=== PATIENT | male | born 1985 | race Caucasian/White ===

== ENCOUNTER 2018-06-08 14:41 | Emergency (ER) | payer MEDICAID, SELFPAY ==
[2018-06-08 14:44] VITALS: BP 151/88; PULSE 77; RESP 18; TEMP 36.6; O2SAT 99
--- NOTE | 2018-06-08 15:52 | ED.GENADUL_ITS ---
Discharge Plan Disposition Patient Disposition: HOME Condition: Good Discharge Details Chief Complaint: GenMedical Clinical Impression: Carbon monoxide exposure Primary Care Provider: None,None ED Provider: Lincoln Maradiaga Discharge Instructions Instructions: Carbon Monoxide Poisoning (ED) Additional Instructions: If you notice any worsening of your symptoms, or any new symptoms such as vomiting, diarrhea, fever, chills, shortness of breath, chest pain, numbness, weakness, or fainting , please return immediately to the emergency department for reevaluation. Please follow up with your primary care provider as soon as possible for reassessment and reevaluation. As always, it was a pleasure participating in your medical care today. Discharge Data Discharge Date/Time-TO BE ENTERED AT DEPARTURE: 06/08/18 18:43 Medical Decision Making <Miguel Nieto NP - Last Filed: 06/10/18 08:08> Patient presenting the emergency department after exposure to possible carbon monoxide being in an enclosed garage for approximately 45 minutes. He states that he started feeling funny in both his head and some tingling in his arms. Patient denies any other symptoms such as fever chills, nuchal rigidity, or other focal neurological deficits. Physical exam is unremarkable. Bedside monitor does show elevated carbon monoxide level so patient placed up on oxygen and observed. Patient is otherwise stable so I do not feel that labs are required at this time. Did discuss with patient potential transfer to Center with hyperbaric treatment and he denied transfer at this time. Plan of care transition to Dr. Maradiaga to continue to observe patient and dispel patient after levels become safe. <Lincoln Maradiaga DO - Last Filed: 06/08/18 18:29> The patient was signed out to me my my colleague Nathan Nieto. He had a slightly elevated carbon monoxide level at time of signout, we are pending repeat monitoring and a observation. While on on oxygen via the nonrebreather. After a prolonged observation. The patient's carbon monoxide has been reassessed and he is now no vaginal bleed lower than 10. The patient demonstrates no neurologic deficits, normal mental status and is at his baseline. He feels well and is requesting discharge home. We did discuss potential hyperbaric oxygen at outside facilities and he states that he is not interested in these options at this time. With no neurologic abnormality, carbon monoxide less than 10, and an excellent clinical picture I feel that his wishes can be respected and that he can be discharged. We had a long discussion regarding the importance of close follow-up and prompt return if he notices any abnormalities or other changes. I have extensively reviewed the treatment plan and discharge instructions with the patient and their family. I have addressed all patient concerns at this time. The patient and family was made aware of what symptoms to monitor for that would warrant a return to the emergency department. Discussed the plan with the patient and family, they demonstrate verbal understanding and agreement with our assessment and plan at this time. HPI <Miguel Nieto NP - Last Filed: 06/10/18 08:08> General Mode of arrival: ambulatory . Date/Time Provider Initiated Documentation: 06/08/18 15:03 . Limitations to Documentation: no limitations . Information obtained by: patient and RN notes reviewed . History of Present Illness described as mild, Quality is described as other (Denies pain), and is localized to the upper extremity. Patient started experiencing this minute(s) (45) and it has been constant. No relieving factors improve symptom(s), Patient notes no other symptoms.. Patient did receive the following treatments prior to arrival, none General Stated Complaint: GenMedical JUAN F: 4 Review of Systems <Miguel Nieto NP - Last Filed: 06/10/18 08:08> Constitutional Denies body ache(s), Denies chills, Denies fever(s) and Denies headache(s) ENT Denies headache(s) Cardiovascular Denies chest pain and Reports dyspnea Respiratory Reports dyspnea Gastrointestinal Denies abdominal pain, Denies nausea and Denies vomiting Musculoskeletal Reports tingling Integumentary/Breasts Denies rash Neurologic Denies confusion, Denies headache(s), Denies sensory deficit and Reports tingling Psychiatric Denies confusion PFSH <Miguel Nieto NP - Last Filed: 06/10/18 08:08> Social History Smoking/Tobacco Use Status: Never Exam <Miguel Nieto NP - Last Filed: 06/10/18 08:08> Const General: cooperative, no acute distress and not ill appearing Orientation: alert, awake and oriented x3 HENMT Mouth: moist mucous membranes Resp Effort & Inspection: normal respiratory effort, able to speak in complete sentences and no respiratory distress Auscultation: clear to auscultation bilaterally Cardio Rate: regular rate Rhythm: regular rhythm Heart Sounds: S1 normal, S2 normal, no click, no gallops, no murmurs and no rubs Skin General skin exam: no rashes or lesions noted Neuro General: alert, awake, oriented x3, moves all extremities and no focal motor deficits Sensory Exam: no sensory deficits noted Course <Miguel Nieto NP - Last Filed: 06/10/18 08:08> Vital Signs Temperature 36.6 C 06/08/18 14:44 Pulse 77 06/08/18 14:44 Respiratory Rate 18 06/08/18 14:44 Blood Pressure 151/88 H 06/08/18 14:44 Pulse Oximetry 99 06/08/18 14:44 Temperature 36.6 C 06/08/18 14:44 Temperature Source Temporal Artery Scan 06/08/18 14:44 Pulse 77 06/08/18 14:44 Respiratory Rate 18 06/08/18 14:44 Respiratory Effort Non-Labored 06/08/18 14:48 Blood Pressure 151/88 H 06/08/18 14:44 Blood Pressure Position Sitting 06/08/18 14:44 Pulse Oximetry 99 06/08/18 14:44 Oxygen Delivery Method Room Air 06/08/18 14:44 Oxygen Flow Rate 0 06/08/18 14:44 Pain Level 0 06/08/18 14:44
[2018-06-08 16:38] VITALS: RESP 20
[2018-06-08 18:08] VITALS: BP 133/79; PULSE 64; RESP 18; TEMP 36.9; O2SAT 100
[2018-06-08 18:10] VITALS: BP 133/79; PULSE 64; RESP 18; TEMP 36.9; O2SAT 100
== END 2018-06-08 18:43 | disposition home or self-care (01) ==
PROVIDERS: Emergency Provider Student in an Organized Health Care Education/Training Program
DX: T58.01XA Toxic effect of carbon monoxide from motor vehicle exhaust, accidental (unintentional), initial encounter (principal); Y92.015 Private garage of single-family (private) house as the place of occurrence of the external cause
CPT/HCPCS: 99282

== ENCOUNTER 2023-10-29 12:51 | Emergency (ER) | payer MEDICAID, SELFPAY ==
[2023-10-29] VITALS (17 sets, daily range): BP systolic 126–169; BP diastolic 73–89; PULSE 58–84; RESP 14–28; TEMP 36.6; O2SAT 94–100
--- NOTE | 2023-10-29 12:45 | RT.EKG_ITS ---
APPROVED REPORT Exam: Resting ECG Reason for Exam: dizziness Patient Location: E HR:68 bpm ECG Measurements Heart Rate 68 AXIS AZ 165 P 48 QRSd 96 QRS 13 QT 371 T 6 QTc 394 Conclusion Sinus rhythm...normal P axis, V-rate 60- 99
--- NOTE | 2023-10-29 13:01 | W.ED.GENAD ---
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 Please stay well-hydrated. Please return to the ED for any persistent dizziness especially with sweating, dizziness and chest pain and shortness of breath associated with exertion.. Or any other emergent concerns. Discharge Data Discharge Date/Time-TO BE ENTERED AT DEPARTURE: 10/29/23 15:15 HPI General Date/Time Provider Initiated Documentation: 10/29/23 13:01. 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 Severity is described as severe for dizziness. Palliating factors include nothing specific- is drinking gatorade currently. Provoking factors include nothing specific. Events leading up to the incident/Associated Symptoms: Patient denies cardiac history, is otherwise healthy. Patient not anticoagulated. General Stated Complaint: Dizzy/Sync JUAN F: 3 Review of Systems All systems reviewed & are unremarkable except as noted in HPI and below Exam Narrative Exam Narrative: GENERAL APPEARANCE: Well-nourished, non-toxic, awake and alert, atraumatic, no acute distress. SKIN: Warm, pink, dry, intact, without rashes/lesions/ulcerations. HEAD: Normocephalic, atraumatic, normal hair distribution for gender/age. EYES: Pupils PERRLA, EOMs intact without nystagmus, normal conjunctiva, no exudates on lids/lashes. ENT: Nares patent, no circumoral cyanosis, no facial swelling NECK: Supple, trachea midline, painless cervical ROM. LUNGS/CHEST: Lungs CTA bilaterally, non-labored respirations, normal A/P diameter, symmetrical expansion, no chest wall deformity HEART (CV/PV): Regular rate and rhythm without murmur, no peripheral edema, no JVD. ABDOMEN: Soft, non-distended, no guarding. MSK: Normal ROM, no swelling/deformity to bilateral UEs or LEs, moving all extremities without weakness, no cyanosis, spine midline without tenderness, normal curvature. NEURO: Mental Status AAOx4 - alert to person, place, time, events No facial droop, no forehead involvement. Motor: No focal weakness - strength 5/5 in bilateral UEs and LEs, proximal and distal, symmetric. Sensory: sensation intact to light touch globally. Gait normal: patient ambulated without ataxia into ED room. PSYCH: euthymic, cooperative, pleasant, appropriate speech Course Vital Signs Vital signs: Vital Signs Temperature 36.6 C 10/29/23 12:54 Pulse 84 10/29/23 12:54 Respiratory Rate 28 H 10/29/23 12:54 Blood Pressure 169/86 H 10/29/23 12:54 Pulse Oximetry 99 10/29/23 12:54 Temperature 36.6 C 10/29/23 12:54 Temperature Source Oral 10/29/23 12:54 Pulse 84 10/29/23 12:54 Respiratory Rate 28 H 10/29/23 12:54 Blood Pressure 169/86 H 10/29/23 12:54 Blood Pressure Position Sitting 10/29/23 12:54 Pulse Oximetry 99 10/29/23 12:54 Oxygen Delivery Method Room Air 10/29/23 12:54 Oxygen Flow Rate 0 10/29/23 12:54 Pain Level 0 10/29/23 12:54 Medical Decision Making This dictation utilizes [id number] dictation software and may contain unedited grammatical errors. 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 Severity is described as severe for dizziness. Palliating factors include nothing specific- is drinking gatorade currently. Provoking factors include nothing specific. Events leading up to the incident/Associated Symptoms: Patient denies cardiac history, is otherwise healthy. Family and social history: no known early cardiac disease history. Pertinent exam findings / vital signs include benign cardiopulmonary exam, mildly diaphoretic, benign abdomen, hemodynamically stable. Differential / pathologies of concern include dehydration, arrhythmia, vertigo, heat exhaustion. Diagnostic studies of: -CBC, CMP, lactate, magnesium, UA, TSH. -CBC benign -CMP no BRITT -lactate mildly elev to 1.9 -magnesium wnl -UA benign -TSH benign -EKG shows sinus rhythm, normal axis, P waves followed by narrow complex QRS, no ST changes, no T wave abnormalities Interventions of: -1L IVF. 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 His EKG is benign, improved with IV fluids, his labs are acutely benign except for mild increase in lactate likely due to acute dehydration and heat exhaustion. He was comfortable with discharge and will return for any further signs of dizziness or shortness of breath. Findings not consistent with ACS, syncope, arrhythmia, profound dehydration, heat stroke. Disposition of Dehydration. Patient verbalized understanding of the plan and return to ED criteria and engaged in shared decision making. Medical Records Medical records reviewed: Yes I reviewed the patient's medical records. Lab Data Lab results reviewed: Yes I reviewed the patient's lab results. Labs: Laboratory Tests Range/Units 10/29/23 10/29/23 13:20 13:57 WBC (4.4-10.8) 10^3/uL 4.92 RBC (4.36-5.78) 10^6/uL 5.43 Hgb (13.5-17.5) g/dL 16.1 Hct (40.0-50.0) % 44.6 MCV (80-95) fL 82 MCH (27.0-33.0) pg 29.7 MCHC (32.0-36.0) % 36.1 H RDW (11.8-14.1) % 11.7 L Plt Count (130-400) 10^3/uL 202 MPV (8.0-11.0) fL 9.8 Immature Gran % % 0.2 Neutrophils % % 68.5 Lymphocytes % % 18.1 Monocytes % % 9.6 Eosinophils % % 3.0 Basophils % % 0.6 Nucleated RBC % (0.0-0.3) % 0.0 Absolute Neutrophils (1.2-6.7) 10^3/uL 3.37 Absolute Lymphocytes (1.2-3.4) 10^3/uL 0.89 L Absolute Monocytes (0.1-0.8) 10^3/uL 0.47 Absolute Eosinophils (0.0-0.7) 10^3/uL 0.15 Absolute Basophils (0.0-0.2) 10^3/uL 0.03 VBG Lactate (0.6-1.4) mmol/L 1.9 H Sodium (136-145) mmol/L 140 Potassium (3.5-5.1) mmol/L 3.7 Chloride (98-107) mmol/L 104 Carbon Dioxide (21.0-32.0) mmol/L 27.6 Anion Gap (3-11) mmol/L 8.4 BUN (7-18) mg/dL 10 Creatinine (0.70-1.30) mg/dL 1.0 Est GFR (CKD-EPI 2020) (mL/min/1.73m2) 99.41 Glucose (74-106) mg/dL 117 H Calcium (8.5-10.1) mg/dL 9.3 Magnesium (1.8-2.4) mg/dL 1.9 Total Bilirubin (0.2-1.0) mg/dL 0.95 AST (15-37) U/L 28 ALT (16-63) U/L 76 H Alkaline Phosphatase (46-116) U/L 89 Total Protein (6.4-8.2) g/dL 7.6 Albumin (3.4-5.0) g/dL 4.2 TSH (0.36-3.74) uIU/mL 0.74 Urine Color (Yellow) Yellow Urine Clarity (Clear) Clear Urine pH (5-8) 7.5 Ur Specific [place] (1.005-1.025) 1.015 Urine Protein (Neg-Trace) mg/dL Negative Urine Ketones (Negative) mg/dL Negative Urine Blood (Negative) Negative Urine Nitrite (Negative) Negative Urine Bilirubin (Negative) Negative Urine Urobilinogen (Up to 0.2) mg/dL 1.0 H Ur Leukocyte Esterase (Negative) Negative Urine Glucose (Negative) mg/dL Negative Quality:SDOH Health Related Social Needs: No Data to Display PFSH All Active Problems (Updated 10/29/23 @ 15:09 by PARKER Pederson) Dehydration (Acute) Allergic rhinitis due to allergen (Acute) Social History Smoking/Tobacco Use Status: Never Smoking risk assessment performed?: Yes Alcohol Intake: current Alcohol type: beer Drug use: Never Do you feel safe in your relationship?: Yes
[2023-10-29] MEDS: Lactated Ringers 1,000 ML 1000 ML IV (13:20)
[2023-10-29 13:22] LABS: Lactate 1.9 mmol/L (0.6-1.4)
[2023-10-29 13:25] LABS: Abs Immature Grans 0.01 10^3/uL (0.0-0.06); Absolute Basophil Count 0.03 10^3/uL (0.0-0.2); Absolute Eosinophil Count 0.15 10^3/uL (0.0-0.7); Absolute Lymphocyte Count 0.89 10^3/uL (1.2-3.4); Absolute Monocyte Count 0.47 10^3/uL (0.1-0.8); Absolute Neutrophil Count 3.37 10^3/uL (1.2-6.7); Basophils % 0.6 %; HCT 44.6 % (40.0-50.0); HGB 16.1 g/dL (13.5-17.5); Immature Grans % 0.2 %; Lymphocytes % 18.1 %; MCH 29.7 pg (27.0-33.0); MCHC 36.1 % (32.0-36.0); MCV 82 fL (80-95); MPV 9.8 fL (8.0-11.0); Monocytes % 9.6 %; Neutrophils % 68.5 %; Platelet Count 202 10^3/uL (130-400); RBC 5.43 10^6/uL (4.36-5.78); RDW 11.7 % (11.8-14.1); RDW-SD 34.5 fL; WBC 4.92 10^3/uL (4.4-10.8)
[2023-10-29 13:52] LABS: ALT 76 U/L (16-63); AST 28 U/L (15-37); Albumin 4.2 g/dL (3.4-5.0); Alkaline Phosphatase 89 U/L (46-116); Anion Gap 8.4 mmol/L (3-11); BUN 10 mg/dL (7-18); Bilirubin, Total 0.95 mg/dL (0.2-1.0); CO2 27.6 mmol/L (21.0-32.0); Calcium 9.3 mg/dL (8.5-10.1); Chloride 104 mmol/L (98-107); Estimated GFR 99.41 (mL/min/1.73m2); Glucose 117 mg/dL (74-106); Magnesium 1.9 mg/dL (1.8-2.4); Potassium 3.7 mmol/L (3.5-5.1); Sodium 140 mmol/L (136-145); TSH (W/Ref FT4) 0.74 uIU/mL (0.36-3.74); Total Protein 7.6 g/dL (6.4-8.2)
[2023-10-29 14:06] LABS: Bilirubin Negative (Negative); Blood Negative (Negative); Clarity Clear (Clear); Glucose Negative (Negative); Ketones Negative (Negative); Leukocyte Esterase Negative (Negative); Nitrite Negative (Negative); Specific Gravity 1.015 (1.005-1.025); pH 7.5 (5-8)
== END 2023-10-29 15:15 | disposition home or self-care (01) ==
PROVIDERS: Emergency Provider Physician Assistant
DX: E86.0 Dehydration (principal)
CPT/HCPCS: 36415; 80053; 93005; 96360; 99284; 81003; 83605; 83735; 84443; 85025; 93010; 99283